=== PATIENT | female | born 1980 | race Two or more races ===

== ENCOUNTER → 2019-10-13 14:18 | Outpatient (CLI) | payer BC, SELFPAY ==
--- NOTE | ~2019-10-13 | XR_ITS ---
XR chest 2V DATE: 10/13/2019 14:32 INDICATION: Cough for 7 weeks TECHNIQUE: PA and lateral views COMPARISON: None FINDINGS: Normal heart size. No hilar or mediastinal enlargement. The lungs are clear of infiltrate o r consolidation. No pleural effusion or pulmonary vascular congestion or pneumothorax. IMPRESSION: No active cardiopulmonary disease Reviewed, dictated and finalized at location B. T EXPERIENCE REPRESENTATIVE
== END ==
PROVIDERS: PCP Internal Medicine; Visit Provider Nurse Practitioner
DX: R05 Cough (principal)
CPT/HCPCS: 71046

== ENCOUNTER → 2020-09-24 13:52 | Outpatient (CLI) | payer BC, SELFPAY ==
--- NOTE | ~2020-09-24 | MM_ITS ---
EXAMINATION: MM screening al BI w mart HISTORY: Screening TECHNIQUE: Craniocaudal and mediolateral oblique 3-D tomosynthesis images were obtained and synthetic 2-D images were generated. CAD analysis was submitted and interpreted. COMPARISON: No prior mammogram is available for comparison at this institution. BREAST PARENCHYMAL COMPOSITION: The breasts are heterogeneously dense, which may obscure small masses . FINDINGS: There is no evidence of suspicious mass, calcification, or architectural distortion to sugg est malignancy in either breast. There has been no suspicious interval change. IMPRESSION: 1. No mammographic evidence of malignancy. 2. Recommend routine screening mammography in one year. BI-RADS Category 1: Negative Reviewed, dictated and finalized at location A. 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
== END ==
PROVIDERS: PCP Internal Medicine; Visit Provider Obstetrics & Gynecology
DX: Z12.31 Encounter for screening mammogram for malignant neoplasm of breast (principal)
CPT/HCPCS: 77063; 77067

== ENCOUNTER 2021-01-17 16:23 | Outpatient (CLI) | payer BC, SELFPAY ==
[2021-01-17 18:17] LABS: Beta HCG Quantitative < 2.39 mIU/ML
== END 2021-01-17 16:24 | disposition home or self-care (01) ==
LOC: ANHLAB 16:26
PROVIDERS: PCP Internal Medicine; Visit Provider Student in an Organized Health Care Education/Training Program
DX: Z30.9 Encounter for contraceptive management, unspecified (principal)
CPT/HCPCS: 36415; 84702

== ENCOUNTER → 2021-11-03 14:26 | Outpatient (CLI) | payer BC, SELFPAY ==
--- NOTE | ~2021-11-03 | MM_ITS ---
EXAMINATION: MM screening al BI w mart HISTORY: Screening TECHNIQUE: Craniocaudal and mediolateral oblique 3-D tomosynthesis images were obtained and synthetic 2-D images were generated. CAD analysis was submitted and interpreted. COMPARISON: 09/24/2020 BREAST PARENCHYMAL COMPOSITION: The breasts are heterogeneously dense, which may obscure small masses . FINDINGS: There is no evidence of suspicious mass, calcification, or architectural distortion to sugg est malignancy in either breast. There has been no suspicious interval change. IMPRESSION: 1. No mammographic evidence of malignancy. 2. Recommend routine screening mammography in one year. BI-RADS Category 1: Negative Reviewed, dictated and finalized at location A. SERVICE AMBASSADOR
--- NOTE | ~2021-11-03 | US_ITS ---
EXAMINATION: US pelvic complete w TV DATE: 11/03/2021 15:40 INDICATION: Displacement of IUD, missing IUD strings TECHNIQUE: Multiple transabdominal and endovaginal sonographic images of the pelvis were obtained. COMPARISON: None. FINDINGS: The uterus measures 9.1 x 4.6 x 5.0 cm. An IUD is visualized in expected position. The endo metrial complex measures 8 mm. The right ovary measures 2.5 x 1.9 x 2.4 cm. The left ovary measures 2 .7 x 1.3 x 2.7 cm. There is normal vascular flow in the ovaries. There is no free fluid in the pelvis . IMPRESSION: 1. IUD in expected position. Reviewed, dictated and finalized at location B. [employer]
== END ==
PROVIDERS: Visit Provider Obstetrics & Gynecology
DX: Z12.31 Encounter for screening mammogram for malignant neoplasm of breast (principal); Z97.5 Presence of (intrauterine) contraceptive device
CPT/HCPCS: 76830; 76856; 77063; 77067

== ENCOUNTER → 2021-11-21 14:57 | Outpatient (CLI) | payer BC, SELFPAY ==
--- NOTE | ~2021-11-21 | XR_ITS ---
XR chest 2V DATE: 11/21/2021 15:11 INDICATION: Cough TECHNIQUE: PA and lateral views COMPARISON: October 13, 2021 view chest FINDINGS: Normal heart size. No hilar or mediastinal enlargement. No pulmonary infiltrate or consolid ation, pleural effusion or pulmonary vascular congestion or pneumothorax. IMPRESSION: No active cardiopulmonary disease Reviewed, dictated and finalized at location A.
== END ==
PROVIDERS: PCP Nurse Practitioner; Visit Provider Nurse Practitioner
DX: R05.9 Cough, unspecified (principal)
CPT/HCPCS: 71046

== ENCOUNTER 2023-11-05 09:40 | Outpatient (CLI) | payer BC, SELFPAY ==
--- NOTE | ~2023-11-05 | MM_ITS ---
EXAMINATION: MM screening al BI w mart HISTORY: Screening mammogram TECHNIQUE: Craniocaudal and mediolateral oblique 3-D tomosynthesis images were obtained and synthetic 2-D images were generated. CAD analysis was submitted and interpreted. COMPARISON: 11/03/2021, 09/24/2020 bilateral screening mammogram examinations BREAST PARENCHYMAL COMPOSITION: The breasts are heterogeneously dense, which may obscure small masses . FINDINGS: There is no evidence of suspicious mass, calcification, or architectural distortion to sugg est malignancy in either breast. There has been no suspicious interval change. IMPRESSION: 1. No mammographic evidence of malignancy. 2. Recommend routine screening mammography in one year. BI-RADS Category 1: Negative Reviewed, dictated and finalized at location A.
== END 2023-11-05 09:41 ==
LOC: MICIMG 09:42
PROVIDERS: PCP Obstetrics & Gynecology; Visit Provider Obstetrics & Gynecology
DX: Z12.31 Encounter for screening mammogram for malignant neoplasm of breast (principal)
CPT/HCPCS: 77063; 77067

== ENCOUNTER 2025-03-10 14:00 | Outpatient (CLI) | payer BC, SELFPAY ==
--- NOTE | ~2025-03-10 | MM_ITS ---
EXAMINATION: MM screening al BI w mart HISTORY: Screening TECHNIQUE: Craniocaudal and mediolateral oblique 3-D tomosynthesis images were obtained and synthetic 2-D images were generated. CAD analysis was submitted and interpreted. COMPARISON: Comparison to multiple prior studies sequentially, with oldest reviewed study dated 09/24. BREAST PARENCHYMAL COMPOSITION: Dense: The breasts are heterogeneously dense, which may obscure small masses FINDINGS: There is no evidence of suspicious mass, calcification, or architectural distortion to sugg est malignancy in either breast. There has been no suspicious interval change. IMPRESSION: 1. No mammographic evidence of malignancy. 2. Recommend routine screening mammography in one year. BI-RADS Category 1: Negative Reviewed, dictated and finalized at location B.
== END 2025-03-10 14:01 | disposition home or self-care (01) ==
PROVIDERS: PCP Internal Medicine; Visit Provider Nurse Practitioner Obstetrics & Gynecology
DX: Z12.31 Encounter for screening mammogram for malignant neoplasm of breast (principal); Z11.3 Encounter for screening for infections with a predominantly sexual mode of transmission
CPT/HCPCS: 77063; 77067